=== PATIENT | female | born 1975 | race Hispanic/Latino ===

== ENCOUNTER → 2024-01-31 | Day surgery (SDC) | payer MEDICARE, OTHER ==
[~2024-01-31] MED LIST: CIPRO PO; CRESTOR10 MG; ESTRADIOL1 MG PO; LIDOCAINE HCL 2% LOCAL INJ 5 ML SDV VIAL INJ ONE; METOPROLOL SUCC25 MG; ONDANSETRON ODT8 MG PO; OZEMPIC1 MG/0.71 SC; PANTOPRAZOLE SO40 MG PO; PROPOFOL IV EMULSION 10 MG/ML 50 ML VIAL IV ONE; QUETIAPINE FUM100 MG PO; QUVIVIQ PO; TRAZODONE HCL50 MG PO; TRINTELLIX20 MG PO; VITAMIN D250 MCG PO; ZOLPIDEM TARTRAT5 MG PO
[2024-01-31] MEDS: LACTATED RINGER'S 1,000 ML ONE (11:59)
[2024-01-31 12:15] VITALS: TEMP 97.2
[2024-01-31 12:45] VITALS: BP 110/71; PULSE 69; RESP 18; O2SAT 100
== END | disposition home or self-care (01) ==
LOC: OR 10:31
PROVIDERS: ATTEND Internal Medicine Gastroenterology
DX: R13.10 Dysphagia, unspecified (principal); K29.50 Unspecified chronic gastritis without bleeding; K31.89 Other diseases of stomach and duodenum; K44.9 Diaphragmatic hernia without obstruction or gangrene; K21.9 Gastro-esophageal reflux disease without esophagitis; K59.00 Constipation, unspecified; R63.4 Abnormal weight loss; G47.33 Obstructive sleep apnea (adult) (pediatric); N39.0 Urinary tract infection, site not specified; I10 Essential (primary) hypertension; E78.5 Hyperlipidemia, unspecified; D72.829 Elevated white blood cell count, unspecified; F32.A Depression, unspecified; F41.9 Anxiety disorder, unspecified; Z88.8 Allergy status to other drugs, medicaments and biological substances; Z01.810 Encounter for preprocedural cardiovascular examination; Z79.85 Long-term (current) use of injectable non-insulin antidiabetic drugs; Z79.899 Other long term (current) drug therapy; Z87.19 Personal history of other diseases of the digestive system
CPT/HCPCS: 43239; 88305; 88342; 93005; J2003; J2704; J7121